=== PATIENT | male | born 1945 | race Caucasian/White ===

== ENCOUNTER → 2025-02-06 | Outpatient (CLI) | payer MEDICARE, OTHER ==
[2025-02-06 09:35] LABS: Source, Urine Clean Catch
[2025-02-06 09:44] LABS: Color, Urine Yellow (P-Yellow)
[2025-02-06 09:45] LABS: Bilirubin, Urine Neg (Neg); Glucose Qualitative, Urine Neg (Normal); Ketones, Urine Neg (Neg); Leukocyte Esterase, Urine 2+ (Neg); Protein, Urine Trace (Neg); Specific Gravity, Urine 1.025 (1.003-1.022); Urobilinogen, Urine 1+ (Normal)
[2025-02-06 09:46] LABS: White Blood Cells, Urine TNTC /hpf (0-5)
== END ==
LOC: LAB 09:34 → LAB SHORT 09:34
PROVIDERS: Physician Assistant
DX: R31.0 Gross hematuria (principal); R30.0 Dysuria
CPT/HCPCS: 81001; 87086